=== PATIENT | female | born 1980 | race Caucasian/White ===

== ENCOUNTER 2022-05-21 05:32 | Emergency (ER) | payer MEDICAID, OTHER ==
[~2022-05-21] VITALS: Ht 152.4 cm; Wt 54.5 kg
[2022-05-21 06:11] LABS: BASO % 0.2 % (0.0-1.0); EOS % 0.7 % (0.0-3.0); HEMATOCRIT 42.3 % (36.0-47.0); HEMOGLOBIN 13.6 g/dl (12.0-15.5); LYMPH # 1.1 10^3/uL (1.5-5.0); LYMPH % 20.9 % (24.0-44.0); MEAN CORPUSCULAR HEMOGLOBIN 31.1 pg (27.0-33.0); MEAN CORPUSCULAR HGB CONC 32.2 g/dl (32.0-36.5); MEAN CORPUSCULAR VOLUME 96.8 fl (80.0-96.0); MONO # 0.5 10^3/uL (0.0-0.8); MONO % 10.1 % (2.0-8.0); NEUTROPHILS # 3.6 10^3/uL (1.5-8.5); NEUTROPHILS % 67.9 % (36.0-66.0); PLATELET COUNT, AUTOMATED 186 10^3/uL (150-450); RED BLOOD COUNT 4.37 10^6/uL (4.00-5.40); WHITE BLOOD COUNT 5.4 10^3/uL (4.0-10.0)
[2022-05-21 06:38] LABS: BLOOD UREA NITROGEN 7 MG/DL (9-23); CALCIUM LEVEL 8.3 MG/DL (8.5-10.1); CARBON DIOXIDE LEVEL 30 MMOL/L (20-31); CHLORIDE LEVEL 103 MMOL/L (98-107); CK-MB VALUE MASS < 1.0 NG/ML (<3.6); CPK CREATINE PHOSPHOKINASE 93 U/L (34-145); CREATININE FOR GFR 0.82 MG/DL (0.55-1.30); GLOMERULAR FILTRATION RATE > 60.0 (>58); GLUCOSE, FASTING 103 MG/DL (60-100); HCG, SERUM QUALITATIVE NEGATIVE (NEGATIVE); MB/CK RELATIVE INDEX 1.07 (< OR =4); POTASSIUM SERUM 3.6 MMOL/L (3.5-5.1); SODIUM LEVEL 138 MMOL/L (136-145)
[2022-05-21] MEDS ORDERED: NS 1,000 ML IV ONE (07:45)
[2022-05-21 08:24] LABS: CK-MB VALUE MASS < 1.0 NG/ML (<3.6)
[2022-05-21 08:25] LABS: CPK CREATINE PHOSPHOKINASE 82 U/L (34-145); MB/CK RELATIVE INDEX 1.21 (< OR =4)
[2022-05-21 09:22] VITALS: BP 108/75
== END 2022-05-21 09:43 | disposition home or self-care (01) ==
LOC: M ED 05:32
DX: R00.2 Palpitations (principal); F12.10 Cannabis abuse, uncomplicated

== ENCOUNTER 2022-05-21 22:00 | Emergency (ER) | payer OTHER ==
[~2022-05-21] VITALS: Ht 152.4 cm; Wt 54.5 kg
[2022-05-21 22:00] VITALS: BP 115/65
== END 2022-05-21 23:32 | disposition left against medical advice (07) ==
LOC: M ED 22:00
DX: Z53.21 Procedure and treatment not carried out due to patient leaving prior to being seen by health care provider (principal)

== ENCOUNTER 2023-02-01 16:23 | Emergency (ER) | payer OTHER ==
[~2023-02-01] VITALS: Ht 152.4 cm; Wt 53.6 kg
[2023-02-01 16:27] VITALS: BP 128/73; TEMP 96.7; O2SAT 100
[2023-02-01] MEDS ORDERED: BOOSTRIX VACCINE (TETANUS/DIPHTH/ACEL. PERTUSSIS) 0.5ML SYR IM ONE (19:30)
[2023-02-01] MEDS ORDERED: LIDOCAINE 1% MDV 20ML VIAL SC ONE (19:30)
[2023-02-01] MEDS ORDERED: CEPHALEXIN 500 MG CAP PO ONE (19:30)
[2023-02-01] MEDS ORDERED: NEOSPORIN OINT 0.9 GM PKT TOP ONE (19:45)
[2023-02-01] MEDS ORDERED: CEPH500C PO (19:49)
== END 2023-02-01 19:56 | disposition home or self-care (01) ==
LOC: M ED 16:23
DX: S50.812A Abrasion of left forearm, initial encounter (principal); W29.8XXA Contact with other powered hand tools and household machinery, initial encounter; Y92.009 Unspecified place in unspecified non-institutional (private) residence as the place of occurrence of the external cause; Y93.89 Activity, other specified; Y99.9 Unspecified external cause status; Z79.899 Other long term (current) drug therapy

== ENCOUNTER 2024-02-19 19:59 | Emergency (ER) | payer OTHER ==
[~2024-02-19] VITALS: Ht 152.4 cm; Wt 58.2 kg
[~2024-02-19 19:59] MED LIST: CEPH500C PO
[2024-02-19 20:05] VITALS: BP 132/76; TEMP 97.3; O2SAT 100
== END 2024-02-19 21:33 | disposition left against medical advice (07) ==
LOC: M ED 19:59
DX: Z53.21 Procedure and treatment not carried out due to patient leaving prior to being seen by health care provider (principal)

== ENCOUNTER → 2024-09-14 | Outpatient (REF) | payer OTHER ==
[2024-09-14 14:20] LABS: THYROID STIMULATING HORMONE 2.52 uIU/ML (0.55-4.78)
[2024-09-14 14:23] LABS: FREE T4 0.99 NG/DL (0.89-1.76)
[2024-09-14 14:30] LABS: MAGNESIUM LEVEL 2.1 MG/DL (1.8-2.4)
== END ==
LOC: M LABWUC 13:23
PROVIDERS: ATTEND Physician Assistant
DX: R00.2 Palpitations (principal)

== ENCOUNTER → 2024-09-17 | Outpatient (CLI) | payer OTHER | LOC: M EKG 10:46 | PROVIDERS: ATTEND Physician Assistant | DX: R00.2 Palpitations (principal) ==

== ENCOUNTER → 2025-02-02 | Outpatient (CLI) | payer OTHER | LOC: M CARPUL 08:10 | PROVIDERS: ATTEND Physician Assistant | DX: R94.31 Abnormal electrocardiogram [ECG] [EKG] (principal); R07.9 Chest pain, unspecified; I34.0 Nonrheumatic mitral (valve) insufficiency ==